=== PATIENT | male | born 1975 | race Caucasian/White ===

== ENCOUNTER 2020-06-29 19:32 | Emergency (ER) | payer BC, SELFPAY ==
[2020-06-29 19:39] VITALS: RESP 17; BMI 30.3
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
[2020-06-29 20:08] VITALS: RESP 16; O2SAT 94
[2020-06-29] MEDS: HYDROmorphone 1 mg/mL INJ 1 mL IVP (20:08)
[2020-06-29] MEDS: iohexol 300 mg/mL 100 mL Btl IV (20:19)
[2020-06-29 20:20] LABS: Basophils # 0.1 10^3/uL (0.0-0.1); Basophils % 0.6 %; Eosinophils # 0.4 10^3/uL (0.0-0.8); Eosinophils % 3.8 %; Hematocrit 42.8 % (42.0-52.0); Hemoglobin 14.7 g/dL (11.7-16.6); Lymphocytes # 2.3 10^3/uL (0.8-4.8); Lymphocytes % 24.2 %; Mean Corpuscular HGB Conc 34.3 g/dL (30.0-36.0); Mean Corpuscular Hemoglobin 32.9 pg (28.0-34.0); Mean Corpuscular Volume 95.7 fL (80-94); Mean Platelet Volume 9.7 fL (7.4-10.4); Monocytes # 0.8 10^3/uL (0.2-0.9); Monocytes % 8.7 %; Neutrophils # 5.94 10^3/uL (1.8-7.7); Neutrophils % 62.4 %; Nucleated Red Blood Cells % 0 %; Platelet Count 247 10^3/cmm (130-400); Red Blood Count 4.47 10^6/uL (4.1-5.3); Red Cell Distribution Width 11.9 % (12.1-15.1); White Blood Count 9.5 10^3/uL (4.0-10.0)
[2020-06-29 20:40] LABS: Alanine Aminotransferase 21 U/L (0-41); Albumin Level 4.4 g/dL (3.5-5.2); Alkaline Phosphatase 92 IU/L (40-130); Anion Gap 12.9 (5-19); Aspartate Amino Transferase 18 U/L (0-40); Blood Urea Nitrogen 12 mg/dL (6-20); Calcium 9.2 mg/dL (8.5-10.5); Carbon Dioxide 27 mmol/L (22-29); Chloride 103 mmol/L (98-107); Globulin 2.7 g/dL (1.3-4.6); Glomerular Filtration Rate 72.1 mL/min (90-130); Glucose 134 mg/dL (65-115); Osmolality Calculated 290 mOsm/kg (285-295); Potassium 3.9 mmol/L (3.5-5.1); Sodium 139 mmol/L (136-145); Total Bilirubin 0.3 mg/dL (0.15-1.2); Total Protein 7.1 g/dL (6.6-8.7)
[2020-06-29 20:42] LABS: Alcohol Level < 10 mg/dL (0-10)
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
[2020-06-29 21:40] VITALS: RESP 18
[2020-06-29] MEDS: oxyCODONE-APAP 5-325 mg Tablet 2 TAB PO (21:40)
--- NOTE | 2020-06-29 22:26 | PC.NURSE ---
DESIREE splint placed by EMS was removed to place a proper splint. Upon removal, an open fracture bleed was noticed. Dr. Ojeda notified and examined the wound. Pressure bandage applied. Ortho doctor notified but refused the case. Attempting to send patient to another facility.
[2020-06-29 22:48] VITALS: BP 119/77; PULSE 71; RESP 18; O2SAT 96
[2020-06-29 22:52] VITALS: BP 119/77; PULSE 87; RESP 16; O2SAT 96
[2020-06-29] MEDS: nicotine 21 mg Patch 1 PATCH TRANSDERMA (23:54)
[2020-06-29 23:55] VITALS: BP 119/77; PULSE 87; RESP 16; O2SAT 96
--- NOTE | 2020-06-29 23:56 | PC.NURSE ---
Pressure dressing applied to open wound on Right ankle. Posterior short leg and stirrup splints applied to the right ankle.
--- NOTE | 2020-07-01 09:05 | DCPLANNER ---
Addendum entered by Alethea Sánchez 07/01/20 11:12: Pat from ortho called casework manager, stating patient had surgery. marina dry dock manager looked in patients chart, patient had been transferred to another facility. Original Note: marina dry dock manager had message to schedule a follow up appointment for patient with ortho. marina dry dock manager called the ortho clinic, spoke with Morena, gave clinic patients information. marina dry dock manager was told that patients information would be printed and reviewed. Clinic will call patient with appointment information.
== END 2020-06-30 00:37 | disposition other institution (70) ==
PROVIDERS: Emergency Provider Emergency Medicine; PCP Nurse Practitioner
DX: S82.841B Displaced bimalleolar fracture of right lower leg, initial encounter for open fracture type I or II (principal); I10 Essential (primary) hypertension; Z86.19 Personal history of other infectious and parasitic diseases; F17.210 Nicotine dependence, cigarettes, uncomplicated; V29.9XXA Motorcycle rider (driver) (passenger) injured in unspecified traffic accident, initial encounter
CPT/HCPCS: 12345; 29515; 70450; 71260; 72125; 73030; 73130; 73610; 74177; 80053; 80307; 85025; 96365; 96375; 99283; 99285; E0114; J0690; J1170; Q9967

== ENCOUNTER 2020-12-10 12:37 | Outpatient (CLI) | payer BC, SELFPAY ==
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
== END 2020-12-10 12:38 | disposition home or self-care (01) ==
LOC: RADSHAW 12:39
PROVIDERS: PCP Nurse Practitioner; Visit Provider Nurse Practitioner
DX: G89.29 Other chronic pain (principal); M25.411 Effusion, right shoulder; M19.011 Primary osteoarthritis, right shoulder; M75.101 Unspecified rotator cuff tear or rupture of right shoulder, not specified as traumatic; S46.811A Strain of other muscles, fascia and tendons at shoulder and upper arm level, right arm, initial encounter; X58.XXXA Exposure to other specified factors, initial encounter
CPT/HCPCS: 73221; 80053; 80061; 81000

== ENCOUNTER → 2021-02-03 08:14 | Outpatient (BNVA) | payer SELFPAY | PROVIDERS: PCP Nurse Practitioner; Visit Provider Specialist | DX: G56.03 Carpal tunnel syndrome, bilateral upper limbs (principal); G56.21 Lesion of ulnar nerve, right upper limb; F17.210 Nicotine dependence, cigarettes, uncomplicated | CPT/HCPCS: 95910; 99202 ==

== ENCOUNTER 2021-02-18 10:37 | Outpatient (CLI) | payer SELFPAY ==
--- NOTE | 2021-02-18 11:00 | MR_ITS ---
WS: [id number] MRI CERVICAL SPINE NONCONTRAST HISTORY: M54.12 - Radiculopathy, cervical region COMPARISON: CT cervical spine 06/29/2020 Technique: Multiplanar, multisequence noncontrast imaging of the cervical spine. Normal cervical alignment. Mild reactive marrow edema in the C6 and C7 endplates. No fractures. Mild disc desiccation throughout. Most significant degenerative disc disease at C5-6 and C6-7. Signal within the cervical cord is normal. Visualized posterior fossa is unremarkable. Craniocervical junction, C1 and C2 relationship, odontoid process and soft tissues are normal. C2-C3: Normal. C3-C4: Small central disc protrusion. No contact on the cord. No significant stenosis. C4-C5: Small central disc protrusion and annular fissure. No stenosis. C5-C6: Diffuse annular disc bulge with a moderate central disc protrusion. Disc osteophyte complexes and the foramen. Mild central and bilateral foraminal stenosis. Slightly greater stenosis on the RIGH T. C6-C7: Diffuse osteophytic ridging with a central disc protrusion. Bilateral facet joint arthritis. D isc osteophyte complexes contributing to mild bilateral foraminal stenosis, RIGHT greater than LEFT. C7-T1: Normal. Paraspinal soft tissue are normal. MR/MR cervical spin wo con* [id number] IMPRESSION: 1. Moderate disc osteophyte disease at C5-6 and C6-7 contributing to mild cent ral and bilateral foraminal stenosis. Slightly greater stenosis involving the R IGHT foramina at C5-6 and C6-7. 2. Small central disc protrusion at C4-5 without cord contact.
== END 2021-02-18 10:38 | disposition home or self-care (01) ==
PROVIDERS: PCP Nurse Practitioner; Visit Provider Specialist
DX: M54.12 Radiculopathy, cervical region (principal); M25.78 Osteophyte, vertebrae; M50.222 Other cervical disc displacement at C5-C6 level
CPT/HCPCS: 72141

== ENCOUNTER → 2021-04-16 16:31 | Outpatient (BNVA) | payer OTHER, SELFPAY | PROVIDERS: PCP Nurse Practitioner; Visit Provider Nurse Practitioner | DX: M25.571 Pain in right ankle and joints of right foot (principal); I10 Essential (primary) hypertension | CPT/HCPCS: 73610; 80053; 80061 ==

== ENCOUNTER → 2021-04-24 12:17 | Outpatient (BNVA) | payer OTHER, SELFPAY | PROVIDERS: PCP Nurse Practitioner; Visit Provider Specialist | DX: M54.12 Radiculopathy, cervical region (principal); G56.21 Lesion of ulnar nerve, right upper limb; G56.03 Carpal tunnel syndrome, bilateral upper limbs; F17.200 Nicotine dependence, unspecified, uncomplicated | CPT/HCPCS: 99214 ==